=== PATIENT | male | born 1960 | race Caucasian/White ===

== ENCOUNTER 2016-05-28 14:39 | Inpatient (IN) | payer OTHER ==
[2016-05-28] MEDS ORDERED: NO HOME MEDICATION XX (14:58)
[2016-05-28 15:59] LABS: BASO % 0.4 % (0-2); BASO ABSOLUTE COUNT 0.1 tho/cmm (0.0-0.2); EOS % 1.4 % (0-7); EOSINOPHIL ABSOLUTE COUNT 0.2 tho/cmm (0.0-0.7); HCT-HEMATOCRIT 39.8 % (36.0-53.5); HGB-HEMOGLOBIN 13.2 gm/dl (13.5-17.0); IMMATURE GRANULOCYTES ABSOLUTE 0.07 tho/cmm (0-0.03); IMMATURE GRANULOCYTES PERCENT 0.5 % (0-0.3); LYMPH % 21.3 % (20-45); LYMPH ABSOLUTE COUNT 2.7 tho/cmm (0.8-4.5); MCH (MEAN CORPUSCULAR HGB) 29.5 pg (28.0-32.0); MCHC MEAN CORPUSCULAR HGB CONC 33.2 % (32.0-36.0); MEAN PLATELET VOLUME 9.2 cmc (9.4-12.4); MONO % 5.1 % (0-12); MONOCYTE ABSOLUTE COUNT 0.7 tho/cmm (0.0-1.2); NEUTROPHIL ABSOLUTE COUNT 9.1 tho/cmm (1.6-8.0); NEUTROPHIL-AUTOMATED 9.1 tho/cmm (1.6-8.0); NEUTROPHILS % 71.3 % (40-80); PLATELET COUNT 279 tho/cmm (150-450); RED BLOOD COUNT 4.47 mil/cmm (4.40-5.70); RED CELL DISTRIBUTION WIDTH 14.1 % (12.4-16.4); WHITE BLOOD COUNT 12.8 tho/cmm (4.0-10.0)
[2016-05-28 16:12] LABS: ALB/GLOB RATIO 0.9 (0.8-2.0); ALBUMIN 3.3 g/dl (3.5-5.0); ALKALINE PHOSPHATASE 56 U/L (33-138); ALT/SGPT 53 U/L (12-78); BLOOD UREA NITROGEN 14 mg/dl (6-24); CARBON DIOXIDE-VENOUS 20 mmol/L (22-32); CHLORIDE 102 mmol/l (96-110); CREATININE 1.22 mg/dl (0.60-1.30); GLUCOSE 126 mg/dL (70-110); SODIUM 132 mmol/L (135-145); eGFR VALUE FOR BLACK 77 mL/Min
[2016-05-28 16:15] LABS: ANION GAP 14 mmol/L (0-20); AST/SGOT 45 U/L (10-40); POTASSIUM 4.3 mmol/L (3.7-5.1)
[2016-05-28 16:22] LABS: URINE BILIRUBIN NEGATIVE (NEG); URINE BLOOD NEGATIVE (NEG); URINE GLUCOSE (UA) NEGATIVE (NEG); URINE KETONE NEGATIVE (NEG); URINE LEUKOCYTE ESTERASE NEGATIVE (NEG); URINE NITRITE NEGATIVE (NEG); URINE PH 6.5 (5.0-8.0); URINE PROTEIN SMALL (NEG); URINE SPECIFIC GRAVITY 1.005 (1.003-1.030)
[2016-05-28 16:26] LABS: URINE APPEARANCE CLEAR; URINE COLOR STRAW
[2016-05-28 16:35] LABS: URINE EPITHELIAL CELLS 0-1 /[HPF] (0-10); URINE RBC 0-1 /[HPF] (0-5); URINE WBC 0-2 /[HPF] (0-5)
[2016-05-29 04:55] LABS: BASO % 0.4 % (0-2); BASO ABSOLUTE COUNT 0.1 tho/cmm (0.0-0.2); EOS % 3.1 % (0-7); EOSINOPHIL ABSOLUTE COUNT 0.4 tho/cmm (0.0-0.7); HCT-HEMATOCRIT 41.2 % (36.0-53.5); HGB-HEMOGLOBIN 13.3 gm/dl (13.5-17.0); IMMATURE GRANULOCYTES ABSOLUTE 0.06 tho/cmm (0-0.03); IMMATURE GRANULOCYTES PERCENT 0.5 % (0-0.3); LYMPH % 24.7 % (20-45); LYMPH ABSOLUTE COUNT 2.9 tho/cmm (0.8-4.5); MCH (MEAN CORPUSCULAR HGB) 29.3 pg (28.0-32.0); MCHC MEAN CORPUSCULAR HGB CONC 32.3 % (32.0-36.0); MCV (MEAN CELL VOLUME) 90.7 fl (82.0-96.0); MEAN PLATELET VOLUME 9.3 cmc (9.4-12.4); MONO % 8.3 % (0-12); NEUTROPHIL ABSOLUTE COUNT 7.5 tho/cmm (1.6-8.0); NEUTROPHIL-AUTOMATED 7.5 tho/cmm (1.6-8.0); PLATELET COUNT 322 tho/cmm (150-450); RED BLOOD COUNT 4.54 mil/cmm (4.40-5.70); RED CELL DISTRIBUTION WIDTH 14.4 % (12.4-16.4); WHITE BLOOD COUNT 11.9 tho/cmm (4.0-10.0)
[2016-05-29 05:02] LABS: ANION GAP 12 mmol/L (0-20); BLOOD UREA NITROGEN 16 mg/dl (6-24); CALCIUM 8.6 mg/dl (8.5-10.5); CARBON DIOXIDE-VENOUS 29 mmol/L (22-32); CHLORIDE 102 mmol/l (96-110); CHOLESTEROL 201 mg/dl (120-200); CREATININE 1.48 mg/dl (0.60-1.30); GLUCOSE 118 mg/dL (70-110); HDL CHOLESTEROL 32 mg/dl (40-60); LDL CHOLESTEROL 147 mg/dl (0-99); POTASSIUM 4.1 mmol/L (3.7-5.1); SODIUM 139 mmol/L (135-145); TRIGLYCERIDES 113 mg/dl (<149); VLDL 23 mg/dl (0-30); eGFR VALUE FOR BLACK 61 mL/Min
[2016-05-30 05:37] LABS: INR 1.1 INR (0.9-1.1); PROTHROMBIN TIME 12.8 SECONDS (9.0-13.6)
[2016-05-30 06:03] LABS: CHLORIDE 103 mmol/l (96-110); POTASSIUM 4.4 mmol/L (3.7-5.1); SODIUM 140 mmol/L (135-145)
[2016-05-30 06:07] LABS: ANION GAP 12 mmol/L (0-20); BLOOD UREA NITROGEN 15 mg/dl (6-24); CALCIUM 8.7 mg/dl (8.5-10.5); CARBON DIOXIDE-VENOUS 29 mmol/L (22-32); CREATININE 1.47 mg/dl (0.60-1.30); GLUCOSE 112 mg/dL (70-110); eGFR VALUE FOR BLACK 62 mL/Min
[2016-05-31 07:07] LABS: ANION GAP 11 mmol/L (0-20); BLOOD UREA NITROGEN 22 mg/dl (6-24); CARBON DIOXIDE-VENOUS 30 mmol/L (22-32); CHLORIDE 99 mmol/l (96-110); CREATININE 1.58 mg/dl (0.60-1.30); GLUCOSE 116 mg/dL (70-110); POTASSIUM 3.9 mmol/L (3.7-5.1); SODIUM 136 mmol/L (135-145); eGFR VALUE FOR BLACK 57 mL/Min
[2016-06-03 12:08] LABS: BASO % 0.4 % (0-2); BASO ABSOLUTE COUNT 0.1 tho/cmm (0.0-0.2); EOS % 3.5 % (0-7); EOSINOPHIL ABSOLUTE COUNT 0.4 tho/cmm (0.0-0.7); HCT-HEMATOCRIT 46.3 % (36.0-53.5); HGB-HEMOGLOBIN 15.5 gm/dl (13.5-17.0); IMMATURE GRANULOCYTES ABSOLUTE 0.03 tho/cmm (0-0.03); IMMATURE GRANULOCYTES PERCENT 0.3 % (0-0.3); LYMPH % 20.7 % (20-45); LYMPH ABSOLUTE COUNT 2.4 tho/cmm (0.8-4.5); MCH (MEAN CORPUSCULAR HGB) 29.6 pg (28.0-32.0); MCHC MEAN CORPUSCULAR HGB CONC 33.5 % (32.0-36.0); MCV (MEAN CELL VOLUME) 88.5 fl (82.0-96.0); MEAN PLATELET VOLUME 8.9 cmc (9.4-12.4); MONO % 7.6 % (0-12); MONOCYTE ABSOLUTE COUNT 0.9 tho/cmm (0.0-1.2); NEUTROPHIL ABSOLUTE COUNT 7.8 tho/cmm (1.6-8.0); NEUTROPHIL-AUTOMATED 7.8 tho/cmm (1.6-8.0); NEUTROPHILS % 67.5 % (40-80); PLATELET COUNT 307 tho/cmm (150-450); RED BLOOD COUNT 5.23 mil/cmm (4.40-5.70); RED CELL DISTRIBUTION WIDTH 13.8 % (12.4-16.4); WHITE BLOOD COUNT 11.6 tho/cmm (4.0-10.0)
[2016-06-03 12:18] LABS: ANION GAP 13 mmol/L (0-20); BLOOD UREA NITROGEN 28 mg/dl (6-24); CALCIUM 8.6 mg/dl (8.5-10.5); CARBON DIOXIDE-VENOUS 30 mmol/L (22-32); CHLORIDE 94 mmol/l (96-110); CREATININE 1.57 mg/dl (0.60-1.30); GLUCOSE 202 mg/dL (70-110); POTASSIUM 3.8 mmol/L (3.7-5.1); SODIUM 133 mmol/L (135-145); eGFR VALUE FOR BLACK 57 mL/Min
== END 2016-06-04 12:50 | disposition other institution (70) | DRG 286 ==
LOC: EDMED 14:39 → EMR2 17:42 → PCUA 18:01
PROVIDERS: Emergency Medicine; Internal Medicine; Internal Medicine Interventional Cardiology; ADMIT Internal Medicine
PROC: 4A023N7 Measurement of Cardiac Sampling and Pressure, Left Heart, Percutaneous Approach (ICD-10-PCS; principal; 2016-05-30)
PROC: B215YZZ Fluoroscopy of Left Heart using Other Contrast (ICD-10-PCS; 2016-05-30)
PROC: B211YZZ Fluoroscopy of Multiple Coronary Arteries using Other Contrast (ICD-10-PCS; 2016-05-30)
DX: I13.0 Hypertensive heart and chronic kidney disease with heart failure and stage 1 through stage 4 chronic kidney disease, or unspecified chronic kidney disease (principal); I50.41 Acute combined systolic (congestive) and diastolic (congestive) heart failure; N17.9 Acute kidney failure, unspecified; N18.3 Chronic kidney disease, stage 3 (moderate); I25.5 Ischemic cardiomyopathy; E66.9 Obesity, unspecified; E78.5 Hyperlipidemia, unspecified; I25.10 Atherosclerotic heart disease of native coronary artery without angina pectoris; Z68.34 Body mass index [BMI] 34.0-34.9, adult
CPT/HCPCS: C1751; C1894; G0008; G8978-GP-CH; G8979-GP-CH; G8980-GP-CH; G8987-GO-CH; G8988-GO-CH; G8989-GO-CH; J1250; J1644; J1650; J1940; J2250; J2997; J3010; J7030; Q9967